=== PATIENT | male | born 2000 | race Two or more races ===

== ENCOUNTER 2021-05-11 14:05 | Emergency (ER) | payer SELFPAY ==
[2021-05-11 14:19] VITALS: BP 121/73; PULSE 80; RESP 18; TEMP 37; O2SAT 95; BMI 29.0
[2021-05-11 14:20] VITALS: BP 121/73; PULSE 80; RESP 18; TEMP 37; O2SAT 95; BMI 29.0
--- NOTE | 2021-05-11 14:54 | [facility].EDUTC ---
[facility] Disposition Clinical Impression: Urticaria Disposition: Home, Self-Care Condition on Discharge: Good Instructions: Hives, DI for Hives, DI for General Allergic Reactions Additional Instructions: Go home and look at what you may have had an allergic reaction too and avoid Even though you have eaten shrimp your whole life, shrimp cannot be excluded in what may have caused your reaction so be careful if you eat it again Over the counter Benadryl may help with itching associated with reaction Return if needed Start oral steriods tomorrow if rash still present Straight to ER if any life threatening symptoms Prescriptions: predniSONE [Prednisone 5mg Tab Dose-Pack] 5 mg PO UD DOSE PK #21 pack Prescription Printed Referrals: Provider,Referral, MD [Primary Care Provider] - As needed Time of Disposition: 15:24 Medical Decision Making - George Inquiry Pt receiving controlled substance: No George was queried for this patient: No Vital Signs: 05/11/21 14:19 05/11/21 14:20 05/11/21 15:21 Temperature 98.6 F 98.6 F 98.6 F Temperature Source Oral Oral Pulse Rate 80 Pulse Rate [Left Radial] 80 80 Respiratory Rate 18 18 18 Blood Pressure 121/73 Blood Pressure [Left Arm] 121/73 121/73 Blood Pressure Mean [Left Arm] 89 89 Blood Pressure Source [Left Arm] Automatic Cuff Automatic Cuff Blood Pressure Position [Left Arm] Sitting Sitting 02 Sat by Pulse Oximetry 95 95 Oxygen Delivery Method Room Air Room Air Orders (Tests/Meds): ED MEDICATIONS Discontinued Medications Generic Name Dose Route Start Last Admin Trade Name Freq PRN Reason Stop Dose Admin Methylprednisolone Sodium Succinate 125 mg 05/11/21 15:02 05/11/21 15:08 Methylprednisolone Sod Succ 125mg Vial IM 05/11/21 15:03 125 mg ONCE ONE Administration [facility] HPI - General Stated complaint: face swelling Time Seen by Provider: 05/11/21 15:00 Mode of Arrival: Ambulatory Limitations: No Limitations Description of Symptoms (Recalled from Triage Doc. 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 HEENT Symptoms (Recalled from RN notes): No Resp Symptoms (Recalled from RN notes): No Skin Symptoms (Recalled from RN notes): Yes MS Symptoms (Recalled from RN notes): No Functional Status (Recalled from RN notes): WNL - History of Present Illness Provider Complaint: Patient state that he bought some new shaving cream and soap and used them yesterday States that he also eat some shrimp this morning States that he went for a run and started breaking out in hives on his face, neck arms and chest State that he is not having any trouble swallowing or feeling like he cannot breath and unsure what he may be having a reaction too but came in to get checked State that hives are a little better now - Related Data Previous Rx's Medication Instructions Recorded predniSONE [Prednisone 5mg Tab 5 mg PO UD DOSE PK #21 pack 05/11/21 Dose-Pack] Allergies Allergy/AdvReac Type Severity Reaction Status Date / Time No Known Allergies Allergy Verified 05/11/21 14:36 - Worker's Comp Is this a Worker's Comp case?: No [facility] History - Hepatitis A Screen Drug use history?: No High risk sexual behaviors?: No History of sexually transmitted infection?: No Currently employed?: No Childcare worker?: No Do you have indoor plumbing?: Yes Do you have electricity?: Yes Attestation statement:: This patient has been screened for Hepatitis A risk factors. I have reviewed the patient's past medical history: Yes - Social History Alcohol Intake: never Occupational Status: other ROS Obtained: Yes All systems reviewed & no additional complaints, Yes Systems reviewed as appropriate & no additional complaints - Constitutional Constitutional: Reports system reviewed and no additional complaints, except as docu, Denies body ache, Denies chills, Denies fever(s) - ENT Ears, Nose, Mouth, and Throat: Reports syste
[2021-05-11 15:21] VITALS: BP 121/73; PULSE 80; RESP 18; TEMP 37; O2SAT 95
== END 2021-05-11 15:29 | disposition home or self-care (01) ==
LOC: ER 14:21 → UTC 14:21
PROVIDERS: Emergency Provider Nurse Practitioner
DX: L50.9 Urticaria, unspecified (principal)
CPT/HCPCS: 96372; 99202; G0463

== ENCOUNTER → 2021-11-30 09:30 | Outpatient (CLI) | payer OTHER, SELFPAY | PROVIDERS: Visit Provider Nurse Practitioner | DX: U07.1 COVID-19 (principal) | CPT/HCPCS: C9803; U0003; U0005 ==